=== PATIENT | female | born 1965 | race Caucasian/White ===

== ENCOUNTER → 2017-11-13 | Day surgery (SDC) | payer OTHER ==
--- NOTE | 2017-11-11 12:10 | History & Physical Pre-Op ---
General Information and HPI History of Present Illness: Yasemin is a 52-year-old female with a long-standing and worsening complaint of a painful spur right foot. The patient has undergone an extended course of conservative care, including shoe gear and activity modification, rest, immobilization and courses of NSAIDs. None of this is yielded her any significant relief. The patient presents today for preoperative surgical consultation. Our office from Daniele Rapp DPM. Allergies/Medications Allergies: Coded Allergies: Sulfa (Sulfonamide Antibiotics) (rash 11/09/17) ampicillin (rash 11/09/17) Home Med list Biotin (Unknown Strength) TABLET (Unknown Dose) PO DAILY SUPPLEMENT (Reported ) [E-3] 1 HARSHA VAG DAILY HRT (Reported) Estradiol (Estrace) 2 MG TABLET 1 TAB PO DAILY HRT (Reported) Estrogens, Conjugated (Premarin) (Unknown Strength) CREAM.APPL (Unknown Dose) VAG 2XW HRT (Reported) Lisinopril (Zestril) 2.5 MG TABLET 7.5 MG PO QPM BP (Reported) Past History Medical History Cardiovascular: hypertension Surgical History Pertinent Surgical History: hysterectomy (bladder suspension) Review of Systems Review of Systems: Unremarkable except noted distribution numbness Exam & Diagnostic Data Physical Exam: Lungs clear bilaterally. Heart sounds rate and rhythm regular. Lower extremity physical exam demonstrates intact pedal pulses bilaterally. Pulses dorsalis pedis and posterior tibial arteries are palpable bilaterally. Patient without any sensory motor deficits. Deep tendon reflexes grossly intact. Patient noted to have significant pain with palpation to the plantar medial aspect of the right heel. Negative Tinel sign noted with percussion the posterior tibial nerve. Assessment/Plan Assessment/Plan: Painful heel spur right foot. A lengthy discussion reviewing both surgical and conservative options was held the patient at bedside and the patient elects to go forward with surgery despite the risks. As Ranked By This Provider Problem List: 1. Calcaneal spur of right foot Attending MD Review Statement Attending Statement Attending MD Statement: examined this patient
[~2017-11-13] VITALS: Ht 154.9 cm; Wt 71.2 kg
[~2017-11-13] MED LIST: BIOTIN300 MC1 PO; ESTRACE2 M1 PO; PREMARIN30 GM VAG; ZESTRIL2.5 M1 PO; [UNRECOGNIZED DRUG - OTHER] VAG
--- NOTE | 2017-11-13 08:11 | Operative Report ---
Operative/Inv Procedure Report Surgery Date: 11/13/17 Name of Procedure: 1 excision of heel spur right foot 2 intraoperative administration of ankle block anesthesia Pre-Operative Diagnosis: 1 painful heel spur right foot Post-Operative Diagnosis: The same Estimated Blood Loss: scant Surgeon/[employer]: Cristofer Rivas DPM Anesthesia: moderate sedation, block Operative/Procedure Note Note: After obtaining informed consent the patient was brought to the operating room and placed on the operating table in the supine position. The patient isn't securely fastened to the operating table utilizing safety belt. After administration of IV sedation, 10 mL of 0.5% Marcaine plain was infiltrated about the patient's right ankle. A well-padded ankle tourniquet was placed about the patient's right lower extremity. 600 mg clindamycin delivered intravenously times one dose. Right foot and ankle screw prepped and draped in usual aseptic manner. Right lower extremity is elevated to examine to limb, which point the ankle tourniquet inflated 250 mmHg. Attention directed to the plantar medial aspect the right heel, where a 4 cm linear incision was made at the junction the dorsal plantar skin. The dissection was then carried down to the subtenons tissues. All vital neurovascular structures were identified protected. Dissection then continued down to the medial margin of the plantar fascia which was released from its origin on the medial tubercle calcaneal tuberosity. This exposed the spur at the medial tubercle calcaneal tuberosity. This was then rongeured and rasped free. It was then irrigated with copious amounts normal sterile saline. The deep tissues reprepped with 3-0 Vicryl and the skin is reapproximated 3-0 nylon. Incision dressed with Xeroform 4 x 4's Kerlix and Justus wrap. The patient is noted tolerate both procedure and anesthesia well and the patient was transported from the operating room to recovery by sent stable best assess intact all digits right foot.
== END ==
LOC: STS 03:13
DX: M77.31 Calcaneal spur, right foot (principal); I10 Essential (primary) hypertension
CPT/HCPCS: J1885; J2250